=== PATIENT | male | born 1930 | race African-American/Black ===

== ENCOUNTER 2019-12-02 13:57 | Inpatient (IN) | payer MEDICARE, OTHER ==
[~2019-12-02] VITALS: Ht 170.2 cm; Wt 57.2 kg
[2019-12-02 14:24] LABS: BASOPHILS % (AUTO) 0.3 % (0.0-2.0); EOSINOPHILS % (AUTO) 1.6 % (0.0-6.0); HEMATOCRIT 36 % (33-45); HEMOGLOBIN 11.3 g/dL (11.5-14.8); LYMPHOCYTES # (AUTO) 4.4 /CMM (0.8-4.8); LYMPHOCYTES % (AUTO) 30.6 % (20.0-44.0); MEAN CORPUSCULAR HGB CONC 32 g/dl (31.0-36.0); MEAN CORPUSCULAR VOLUME 110 fL (82-100); NEUTROPHILS # (AUTO) 8.7 /CMM (1.8-8.9); NEUTROPHILS % (AUTO) 60.5 % (43.0-81.0); PLATELET COUNT (AUTO) 189 /CMM (150-450); RED BLOOD CELL COUNT(AUTO) 3.28 MIL/uL (4.0-5.2); WHITE BLOOD COUNT (AUTO) 14.3 K/uL (4.3-11.0)
[2019-12-02] MEDS ORDERED: IV NS 0.9% 500 ML BAG IV ONE (14:30)
[2019-12-02 14:33] LABS: CALCIUM, SERUM 9.8 mg/dL (8.5-10.1); CARBON DIOXIDE 26 mmol/L (21-32); CHLORIDE 123 mmol/L (98-107); CREATININE 6.4 mg/dL (0.6-1.3); GLUCOSE 125 mg/dL (74-106); POTASSIUM 5.2 mmol/L (3.5-5.1)
[2019-12-02 14:39] LABS: SODIUM SERUM 161 mmol/L (136-145)
[2019-12-02 14:40] LABS: UREA NITROGEN, BLOOD 134 mg/dL (7-18)
[2019-12-02] MEDS ORDERED: ASCO500T20 GT (14:56)
[2019-12-02] MEDS ORDERED: ATOR80TA GT (14:56)
[2019-12-02] MEDS ORDERED: METO-357 PO (14:56)
[2019-12-02] MEDS ORDERED: AMIN887L GT (14:56)
[2019-12-02] MEDS ORDERED: TYL2T GT (14:56)
[2019-12-02] MEDS ORDERED: MIRT15TA GT (14:56)
[2019-12-02] MEDS ORDERED: LEVO25TA7 GT (14:56)
[2019-12-02] MEDS ORDERED: SENN-18 GT (14:56)
[2019-12-02] MEDS ORDERED: NUTR1PAC14 GT (14:56)
[2019-12-02] MEDS ORDERED: POLY17PO4 GT (14:56)
[2019-12-02] MEDS ORDERED: ACET-868 PO (14:56)
[2019-12-02] MEDS ORDERED: DORZ10DR13 EACHEYE (14:56)
[2019-12-02] MEDS ORDERED: CRAN3875 GT (14:56)
[2019-12-02] MEDS ORDERED: CRAN425C6 PO (14:56)
[2019-12-02] MEDS ORDERED: LISI-605 GT (14:56)
[2019-12-02] MEDS ORDERED: CYAN-51 GT (14:56)
[2019-12-02] MEDS ORDERED: MAGN400O6 GT (14:56)
[2019-12-02] MEDS ORDERED: BISA10SU61 RC (14:56)
[2019-12-02] MEDS ORDERED: APIX5TAB GT (14:56)
--- NOTE | 2019-12-02 15:00 | NUR ---
To ED frm snf for progressive weakness Sent for G-tube placement. on room air, breathing evenly and unlabored. connected to the monitor and pulse ox. kept comfortable, will continue to monitor accordingly.
[2019-12-02] MEDS ORDERED: ONDANSETRON HCL/PF 4 MG/2 ML VIAL IVP PRN (15:30)
[2019-12-02] MEDS ORDERED: Z GUARD REMEDY 2 OZ OINT TP PRN (15:30)
[2019-12-02] MEDS ORDERED: ACETAMINOPHEN 325 MG TABLET PO PRN (15:30)
[2019-12-02] MEDS ORDERED: MAGNESIUM HYDROXIDE 30 ML UDC PO PRN (15:30)
[2019-12-02] MEDS ORDERED: MAG HYDROX/AL HYDROX/SIMETH 30 ML UDC PO PRN (15:30)
[2019-12-02] MEDS ORDERED: BISACODYL SUPP (10 MG) 10 MG/SUPP.RECT SUPP.RECT RC PRN (16:00)
[2019-12-02] MEDS ORDERED: POLYETHYLENE GLYCOL 3350 17 GM POWD.PACK PO PRN (16:00)
[2019-12-02] MEDS ORDERED: SODIUM POLYSTYRENE SULFONATE 15 G/60 ML BOTTLE PO ONE (16:00)
--- NOTE | 2019-12-02 16:00 | NUR ---
ADMISSION NOTE PT BROUGHT UP FROM THE ER AT THIS TIME IN MEDICALLY STABLE CONDITION, VS WNL, A/O X0 BREATHING EVEN AND UNLABORED PLACED ON 2L, BEDREST, NOTED TO HAVE SACRAL SCAR AND TINY HOLE ON HIS BACK, IV IS PATENT AND INTACT. COUGHLIN IN PLACE AND NOTED TO HAVE CHEYANNE COLORED URINE, NOTED TO BE DNR/DNI WITH POLST IN CHART. SAFETY PRECAUTIONS IN PLACE, CALL LIGHT IN REACH, WILL MONITOR ACCORDINGLY
--- NOTE | 2019-12-02 16:57 | NUR ---
wheeled patient via gurney accompanied by RN and EMT in no distress. RN at bedside to assume care.
[2019-12-02] MEDS ORDERED: Medication Not On Formulary EA (Cranberry Extract (Cranberry) 425 MG) PO SCH (17:00)
[2019-12-02] MEDS ORDERED: ARGININE/GLUTAMINE/CALCIUM BMB 1 EACH POWD.PACK PO SCH (17:00)
[2019-12-02] MEDS: CYANOCOBALAMIN 500 MCG TABLET PO SCH (17:00)
[2019-12-02] MEDS: IV 1/2NS 1000 ML 1,000 ML IV SCH (17:14)
[2019-12-02] MEDS: DORZOLAMIDE OPTH 2% 10 ML BOTTLE EACHEYE SCH (17:26)
[2019-12-02] MEDS: TIMOLOL 0.5% SOLN OPHTH 5 ML BOTTLE EACHEYE SCH (17:27)
[2019-12-02] MEDS ORDERED: INSULIN REGULAR, HUMAN 100 UNIT/ML 3 ML VIAL IV ONE (18:00)
[2019-12-02] MEDS ORDERED: DEXTROSE 50%-WATER 50 ML DISP.SYRIN IVP ONE (18:00)
--- NOTE | 2019-12-02 18:40 | NUR ---
RN NOTE DR JACOBSON INFORMED PT REFUSING TO TAKE PO KAYEXLATE, ORDER GIVEN FOR 10 UNIT OF REGULAR INSULIN ALONG WITH AMP OF D50 IV. ORDER IMPLEMENTED AND CARRIED OUT AT THIS TIME. NEW IV ESTABLISHED ON RIGHT HAND GAUGE 22. Addendum: 12/02/19 at 1909 by TOMY BARON RN INSULIN SITE DOCUMENTED NON ADMIN IN EMAR DUE TO MEDICINE BEING GIVEN IVP
--- NOTE | 2019-12-02 19:28 | NUR ---
RN CLOSING NOTE PT IN BED AT LOWEST AND LOCKED POSITION WITH SIDE RAILS UP X2, A/O X0 CONFUSED MUMBLES WORDS, BREATHING EVEN AND UNLABORED WITH NO S/S OF ANY DISTRESS OR PAIN, IV IS PATENT AND INTACT, SAFETY PRECAUTIONS IN PLACE, CALL LIGHT IN REACH, WILL ENDORSE TO NIGHT RN FOR CHERELLE.
[2019-12-02 19:48] LABS: CALCIUM, SERUM 9.6 mg/dL (8.5-10.1); CARBON DIOXIDE 22 mmol/L (21-32); CHLORIDE 124 mmol/L (98-107); GLUCOSE 110 mg/dL (74-106); POTASSIUM 4.6 mmol/L (3.5-5.1)
[2019-12-02 19:49] LABS: SODIUM SERUM 161 mmol/L (136-145); UREA NITROGEN, BLOOD 137 mg/dL (7-18)
[2019-12-02 20:00] VITALS: BP 88/41
--- NOTE | 2019-12-02 20:00 | NUR ---
MS STANLEY NOTES RECEIVED PATIENT AWAKE IN BED WITH NO DISTRESS NOTED. CALL LIGHT WITHIN REACH. PERIPHERAL LINE INTACT AND PATENT. NO FACIAL GRIMACING OR GROANING TO INDICATE PAIN OR DISCOMFORT. ALL BELONGINGS KEPT NEAR BEDSIDE. BED IN LOW LOCK SETTING. WILL CONTINUE TO MONITOR. Addendum: 12/02/19 at 2050 by ELVA LOPEZ RN BED ALARM ON AND FUNCTIONING PROPERLY.
[2019-12-02] MEDS: SENNOSIDES 8.6 MG TABLET PO SCH (21:58)
[2019-12-03] MEDS: HYDROCODONE/APAP 5/325MG 1 EACH TABLET PO PRN ×2 (00:35→10:47)
[2019-12-03] MEDS: IV 1/2NS 1000 ML 1,000 ML IV SCH ×4 (01:30→18:54)
--- NOTE | 2019-12-03 06:25 | NUR ---
MS RN NOTES PATIENT ASLEEP IN BED WITH NO DISTRESS NOTED. CALL LIGHT WITHIN REACH. PERIPHERAL LINE INTACT AND PATENT. FC INTACT AND PATENT AND DRAINED 400ML CLEAR CHEYANNE URINE. NO FACIAL GRIMACING OR GROANING TO INDICATE PAIN OR DISCOMFORT. ALL BELONGINGS KEPT NEAR BEDSIDE. BED IN LOW LOCK SETTING WITH BED ALARM ON AND FUNCTIONING PROPERLY. WILL ENDORSE TO ONCOMING SHIFT.
[2019-12-03 06:50] LABS: BASOPHILS % (AUTO) 0.3 % (0.0-2.0); EOSINOPHILS % (AUTO) 1.7 % (0.0-6.0); HEMATOCRIT 33 % (39-51); HEMOGLOBIN 10.4 g/dL (13.5-17.5); LYMPHOCYTES # (AUTO) 2.7 /CMM (0.8-4.8); LYMPHOCYTES % (AUTO) 20.8 % (20.0-44.0); MEAN CORPUSCULAR HGB CONC 32 g/dl (31.0-36.0); MEAN CORPUSCULAR VOLUME 108 fL (80-96); MONOCYTES % (AUTO) 7.4 % (2.0-12.0); NEUTROPHILS % (AUTO) 69.8 % (43.0-81.0); PLATELET COUNT (AUTO) 166 /CMM (150-450); RED BLOOD CELL COUNT(AUTO) 3.06 MIL/uL (4.5-6.0); WHITE BLOOD COUNT (AUTO) 12.9 K/uL (4.3-11.0)
[2019-12-03 07:11] LABS: ALANINE AMINOTRANSFERASE 86 U/L (12-78); ALBUMIN 3.3 g/dL (3.4-5.0); ALKALINE PHOSPHATASE 232 U/L (46-116); ASPARTATE AMINOTRANSFERASE 41 U/L (15-37); BILIRUBIN,TOTAL 1.9 mg/dL (0.2-1.0); CALCIUM, SERUM 9.3 mg/dL (8.5-10.1); CARBON DIOXIDE 25 mmol/L (21-32); CHLORIDE 124 mmol/L (98-107); CREATININE 5.3 mg/dL (0.6-1.3); GLUCOSE 108 mg/dL (74-106); MAGNESIUM 3.2 mg/dL (1.8-2.4); PHOSPHORUS 4.2 mg/dL (2.5-4.9); POTASSIUM 4.7 mmol/L (3.5-5.1); TOTAL PROTEIN, SERUM 8.1 g/dL (6.4-8.2)
[2019-12-03 07:20] LABS: CREATINE KINASE, TOTAL 277 U/L (39-308)
[2019-12-03 07:30] VITALS: BP 111/67
[2019-12-03 08:00] VITALS: BP 111/67
--- NOTE | 2019-12-03 08:00 | NUR ---
RN NOTES RECEIVED PATIENT IN THE BED OPEN EYES WHEN CALLED NAME OT TOUCHED, CONFUSED REDIRECTABLE. , NO ACUTE RESPIRATORY DISTRESS, ON O2-2LNC. INFUSING 1/2 NS AT 100 ML/HR INTACT ON RIGHT HAND INTACT, COUGHLIN CATHETER DARNING LIGHT YELLOW OUTPUT. ASSIST EATING BY BUS ANALYST , PATIENT TOLERATED BREAKFAST 75 %, KEEP HOB ELEVATED FOR ASPIRATION PRECAUTION, ASSIST TURN AND REPOSTION Q 2 HR, CALL LIGHT WITHIN TO REACH. CONTINUED MONITORING. SEEN PATIENT BY Dr JACOBSON CONTINUE HYDRATION, AND HOSPITALIZATION.
[2019-12-03 08:01] LABS: SODIUM SERUM 161 mmol/L (136-145); UREA NITROGEN, BLOOD 132 mg/dL (7-18)
[2019-12-03] MEDS ORDERED: MIRTAZAPINE 15 MG TABLET PO SCH (09:00)
[2019-12-03] MEDS ORDERED: Medication Not On Formulary EA (Cran/Vitc/Mannose/Inulin/Brom (Uti-Stat Liquid) 30 MG) PO SCH (09:00)
[2019-12-03] MEDS: CYANOCOBALAMIN 500 MCG TABLET PO SCH ×2 (10:45→17:00)
[2019-12-03] MEDS: ASCORBIC ACID 500 MG TABLET PO SCH (10:46)
[2019-12-03] MEDS: LEVOTHYROXINE SODIUM 75 MCG TABLET PO SCH (10:46)
[2019-12-03] MEDS: ATORVASTATIN 40 MG TABLET PO SCH (10:46)
[2019-12-03] MEDS: PROSOURCE / PROSTAT (PYXIS) 30 ML UDC PO SCH (10:47)
--- NOTE | 2019-12-03 10:47 | NUR ---
RN NOTES ADMINISTERED NARCO 5/325 FOR GENERALIZED PAIN 6/10 PER PAIN SCALE. V/S TAKEN BP 111/67, P-100, ALSO ADMINISTERED SCHEDULED MEDICATION BY CRUSHED AND MIXED WITH APPLE SAUCE. SON NEXT TO THE BED. CALL LIGHT WITHIN TO REACH, SAFETY PRECAUTION MAINTAINED ALL THE TIME.
[2019-12-03] MEDS: MAGNESIUM HYDROXIDE 30 ML UDC PO SCH (10:49)
[2019-12-03] MEDS: TIMOLOL 0.5% SOLN OPHTH 5 ML BOTTLE EACHEYE SCH ×2 (10:52→17:00)
[2019-12-03] MEDS: DORZOLAMIDE OPTH 2% 10 ML BOTTLE EACHEYE SCH ×2 (10:52→17:00)
[2019-12-03 11:11] LABS: APPEARANCE,URINE SL CLOUDY (CLEAR); BILIRUBIN,URINE NEGATIVE (NEGATIVE); BLOOD, URINE LARGE Ery/uL (NEGATIVE); COLOR,URINE YELLOW (YELLOW); KETONES,URINE NEGATIVE (NEGATIVE); LEUKOCYTE ESTERASE ,URINE SMALL (NEGATIVE); NITRITE, URINE POSITIVE (NEGATIVE); PH,URINE 5.5 (5.0-8.0); PROTEIN,URINE 30 mg/dl (NEGATIVE); UGLUCOSE NEGATIVE (NEGATIVE); UROBILINOGEN,URINE 0.2 EU/dL (0.2)
[2019-12-03 11:23] LABS: CREATININE, URINE 227.4 MG/DL (30.0-125.0); URINE TOTAL PROTEIN 124.1 mg/dL (0-11.9)
--- NOTE | 2019-12-03 11:30 | NUR ---
rn notes Transferred patient to the [address] [place] [address]/[facility] room 326 bed 1. patient stable medication were administered for pain effective, v/s wnl, infusing 1/2 NS at125 ml/hr intact, belonging with the patient.Report given Manisha Olmstead RN follow plan of care.
--- NOTE | 2019-12-03 11:40 | NUR ---
RECEIVED TRANSFER FROM [facility] VIA BED.REPORT RECEIVED FROM JADEN DEJESUS.NO SOB ON ROOM AIR.APHASIC PT TRIED TO PULL OUT HIS COUGHLIN CATHETER AND IV LINE.ON BEDREST.NOTIFIED DR JACOBSON AND OBTAINED CONSENT FOR RUY SOFT WRIST RESTRAINTS AND CARRIED OUT.PT'S SON AT THE BEDSIDE AND MADE AWARE.NO S/S OF PAIN OR DISTRESS.WILL MONITOR.
[2019-12-03 11:56] VITALS: BP 115/82
[2019-12-03 12:09] LABS: BACTERIA,URINE Few /HPF (None Seen); EOSINOPHIL,URINE None Seen; SQUAMOUS EPITHELIAL CELL,UR Few /HPF (None Seen)
--- NOTE | 2019-12-03 18:20 | NUR ---
WITH ONGOING IVF OF 1/2 NS AT 125 ML/HR INFUSING WELL.
--- NOTE | 2019-12-03 18:30 | NUR ---
TURNED EVERY TWO HRS.RELEASING RUY WRIST RESTRAINTS OCCASIONALLY WHEN ASLEEP TO CHECK HIS CIRCULATION.
[2019-12-03 18:33] VITALS: BP 111/80
--- NOTE | 2019-12-03 19:00 | NUR ---
PT REFUSED MEALS CLOSING HIS MOUTH TIGHTLY INSPITE OF GENTLE APPROACH.PT REFUSED MEDS AND EYEDROPS INSPITE OF EXPLAINING ITS RISKS AND BENEFITS.
--- NOTE | 2019-12-03 19:56 | NUR ---
RECIEVED IN BED ALERT TO NURSE AT THE BEDSIDE, WITH CONFUSION. PULLING AT THE LINEN ASKING ME TO TAKE OFF THE RESTRAINTS, REMOVED THE RIGHT WRIST RESTAINT TO CHECK IV SITE AND WENT TO GRAB HIS COUGHLIN CATHETER. REPLACED THE RESTRAINT COVERED HIM WITH A WARM BLANKET FOR COMFORT IN AN ATTEMPT TO RELAX HIM AND TURNED ON TV, WILL MONITOR HIM THRU THE NIGHT
[2019-12-03 20:00] VITALS: BP 112/71
[2019-12-03 20:14] VITALS: BP 112/71
[2019-12-03] MEDS: SENNOSIDES 8.6 MG TABLET PO SCH (21:34)
[2019-12-03] MEDS: MIRTAZAPINE 15 MG TABLET PO SCH (21:35)
[2019-12-04] MEDS: IV 1/2NS 1000 ML 1,000 ML IV SCH ×3 (02:13→16:59)
--- NOTE | 2019-12-04 05:14 | NUR ---
ENDING NOTES: took carton of juice 30 ml at a time and slwoly. Took his ordered po meds crushed small spoonful pudding, finishiing the complete container of vanilla pidding. 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 urine yellow and clear. foey output 400 clear yellow
[2019-12-04 08:00] VITALS: BP 110/64
[2019-12-04 09:07] LABS: PTH, INTACT 67 pg/mL (15-65)
[2019-12-04] MEDS: ATORVASTATIN 40 MG TABLET PO SCH (09:17)
[2019-12-04] MEDS: MAGNESIUM HYDROXIDE 30 ML UDC PO SCH (09:17)
[2019-12-04] MEDS: CYANOCOBALAMIN 500 MCG TABLET PO SCH ×2 (09:17→16:58)
[2019-12-04] MEDS: ASCORBIC ACID 500 MG TABLET PO SCH (09:17)
[2019-12-04] MEDS: LEVOTHYROXINE SODIUM 75 MCG TABLET PO SCH (09:17)
[2019-12-04] MEDS: PROSOURCE / PROSTAT (PYXIS) 30 ML UDC PO SCH (09:20)
[2019-12-04] MEDS: DORZOLAMIDE OPTH 2% 10 ML BOTTLE EACHEYE SCH ×2 (09:20→17:01)
[2019-12-04] MEDS: TIMOLOL 0.5% SOLN OPHTH 5 ML BOTTLE EACHEYE SCH ×2 (09:20→17:00)
--- NOTE | 2019-12-04 10:55 | NUR ---
WOUND CARE CONSULT: PT PRESENTS WITH SCARRING TO SACRAL AREA AND DEEP SCAR TO MIDBACK, NO DRAINAGE. RECOMMEND SURGICAL CONSULT. RECOMMENDATIONS MADE FOR SKIN PROTECTION. DISCUSSED WITH NURSING STAFF. DR JAGDEEP SMITH NOTIFIED OF CONSULT REQUEST. WILL SEE PRN. [place] IN AGREEMENT WITH PLAN OF CARE. Addendum: 12/04/19 at 1101 by SUYAPA ERNANDEZ WNDNU Amended: Links added.
[2019-12-04 13:39] LABS: BASOPHILS # (AUTO) 0.1 /CMM (0.0-0.2); BASOPHILS % (AUTO) 0.6 % (0.0-2.0); EOSINOPHILS % (AUTO) 5.6 % (0.0-6.0); HEMATOCRIT 27 % (39-51); HEMOGLOBIN 8.4 g/dL (13.5-17.5); LYMPHOCYTES # (AUTO) 2.2 /CMM (0.8-4.8); LYMPHOCYTES % (AUTO) 20.4 % (20.0-44.0); MEAN CORPUSCULAR HGB CONC 31 g/dl (31.0-36.0); MEAN CORPUSCULAR VOLUME 111 fL (80-96); MONOCYTES # (AUTO) 0.7 /CMM (0.1-1.30); MONOCYTES % (AUTO) 6.3 % (2.0-12.0); NEUTROPHILS # (AUTO) 7.2 /CMM (1.8-8.9); NEUTROPHILS % (AUTO) 67.1 % (43.0-81.0); PLATELET COUNT (AUTO) 125 /CMM (150-450); RED BLOOD CELL COUNT(AUTO) 2.44 MIL/uL (4.5-6.0); WHITE BLOOD COUNT (AUTO) 10.7 K/uL (4.3-11.0)
[2019-12-04 14:55] LABS: BASOPHILS # (AUTO) 0.1 /CMM (0.0-0.2); BASOPHILS % (AUTO) 0.6 % (0.0-2.0); EOSINOPHILS % (AUTO) 5.5 % (0.0-6.0); HEMATOCRIT 30 % (39-51); HEMOGLOBIN 9.6 g/dL (13.5-17.5); LYMPHOCYTES # (AUTO) 2.3 /CMM (0.8-4.8); LYMPHOCYTES % (AUTO) 19.1 % (20.0-44.0); MEAN CORPUSCULAR HGB CONC 32 g/dl (31.0-36.0); MEAN CORPUSCULAR VOLUME 109 fL (80-96); MONOCYTES # (AUTO) 0.8 /CMM (0.1-1.30); NEUTROPHILS # (AUTO) 8.2 /CMM (1.8-8.9); NEUTROPHILS % (AUTO) 67.8 % (43.0-81.0); PLATELET COUNT (AUTO) 139 /CMM (150-450); RED BLOOD CELL COUNT(AUTO) 2.77 MIL/uL (4.5-6.0); WHITE BLOOD COUNT (AUTO) 12.1 K/uL (4.3-11.0)
[2019-12-04 15:09] LABS: ALANINE AMINOTRANSFERASE 243 U/L (12-78); ALBUMIN 2.8 g/dL (3.4-5.0); ALKALINE PHOSPHATASE 332 U/L (46-116); ASPARTATE AMINOTRANSFERASE 275 U/L (15-37); BILIRUBIN,TOTAL 4.2 mg/dL (0.2-1.0); CALCIUM, SERUM 8.5 mg/dL (8.5-10.1); CARBON DIOXIDE 22 mmol/L (21-32); CHLORIDE 122 mmol/L (98-107); CREATININE 3.3 mg/dL (0.6-1.3); GLUCOSE 94 mg/dL (74-106); MAGNESIUM 2.7 mg/dL (1.8-2.4); POTASSIUM 4.2 mmol/L (3.5-5.1); TOTAL PROTEIN, SERUM 7.4 g/dL (6.4-8.2)
[2019-12-04 15:11] LABS: UREA NITROGEN, BLOOD 92 mg/dL (7-18)
[2019-12-04 15:12] LABS: SODIUM SERUM 157 mmol/L (136-145)
[2019-12-04 16:00] VITALS: BP 135/65
--- NOTE | 2019-12-04 19:48 | NUR ---
MS RN OPENING NOTES PATIENT RECEIVED RESTING IN BED COMFORTABLY; A/O X1; PATIENT ON 2L NC, TOLERATING WELL; NO S/S OF ACUTE RESPIRATORY DISTRESS NOTED; BREATHING EVEN AND UNLABORED; BILATERAL SOFT WRIST RESTRAINTS IN PLACE, NO S/S OF SKIN BREAKDOWN UNDER RESTRAINTS; COUGHLIN INTACT AND FLOWING YELLOW OUTPUT NOTED; R HANG #22 RUNNING D5 1/2 NS @ 75ML/HR; FLUSHING WELL, NO S/S OF REDNESS OR INFILTRATION; SAFETY PRECAUTIONS IN PLACE, BED LOCKED IN LOW POSITION; BILATERAL UPPER SIDE RAILS UP; CALL LIGHT WITHIN REACH; WILL CONTINUE TO MONITOR.
[2019-12-04 20:00] VITALS: BP 134/84
--- NOTE | 2019-12-04 22:00 | NUR ---
MS STANLEY NOTES TIMOLOL EYE DROPS NON-ADMIN; UNAVAILABLE. Addendum: 12/05/19 at 0039 by JIE MARTÍNEZ RN ENTRY ERROR
[2019-12-04] MEDS: SENNOSIDES 8.6 MG TABLET PO SCH (22:27)
[2019-12-04] MEDS: MIRTAZAPINE 15 MG TABLET PO SCH (22:27)
[2019-12-05] MEDS: IV 1/2NS 1000 ML 1,000 ML IV SCH ×2 (01:44→10:10)
[2019-12-05 05:07] LABS: *SPE A/G RATIO 0.8 (0.7-1.7); *SPE ALBUMIN 3.3 g/dL (2.9-4.4); *SPE ALPHA-1-GLOBULIN 0.3 g/dL (0.0-0.4); *SPE ALPHA-2-GLOBULIN 0.8 g/dL (0.4-1.0); *SPE GLOBULIN, TOTAL 4.1 g/dL (2.2-3.9); *SPE M-SPIKE Not Observed g/dL (Not Observed)
--- NOTE | 2019-12-05 06:17 | NUR ---
MS RN CLOSING NOTES PATIENT SLEEPING IN BED COMFORTABLY; BREATHING EVEN AND UNLABORED; NO S/S OF ACUTE RESPIRATORY DISTRESS NOTED; PATIENT ON 2L NC; TOLERATING WELL; BILATERAL SOFT WRIST RESTRAINTS IN PLACE, NO EVIDENCE OF SKIN BREAKDOWN IN BILATERAL WRIST AREA NOTED; R HAND #22 RUNNING 1/2 NS @ 125ML/HR; FLUSHING WELL, NO S/S OF REDNESS OR INFILTRATION NOTED; COUGHLIN CATH INTACT, FOLLOWING DARK YELLOW UO; SAFETY PRECAUTIONS IN PLACE, BILATERAL UPPER SIDE RAILS X2; CALL LIGHT WITHIN REACH; WILL ENDORSE CONTINUITY OF CARE TO ONCOMING NURSE.
--- NOTE | 2019-12-05 07:54 | NUR ---
MS RN NOTES PATIENT RECEIVED RESTING INSIDE ROOM. SLEEPING, AROUSABLE THROUGH VERBAL AND TACTILE STIMULI. NO ACUTE DISTRESS. BILATERAL SOFT WRIST RESTRAINTS IN PLACE, SKIN CHECKS DONE. COUGHLIN CATH IN PLACE WITH YELLOW URINE OUTPUT NOTED AT THIS TIME. SAFETY PRECAUTIONS IN PLACE. WILL CONTINUE TO MONITOR. BED LOCKED AND IN LOW POSITION. BILATERAL UPPER SIDE RAILS UP AND LOCKED. CALL LIGHT WITHIN EASY REACH
[2019-12-05 07:59] LABS: BASOPHILS % (AUTO) 0.3 % (0.0-2.0); EOSINOPHILS % (AUTO) 6.8 % (0.0-6.0); HEMATOCRIT 26 % (39-51); HEMOGLOBIN 8.6 g/dL (13.5-17.5); LYMPHOCYTES # (AUTO) 2.4 /CMM (0.8-4.8); LYMPHOCYTES % (AUTO) 19.5 % (20.0-44.0); MEAN CORPUSCULAR HGB CONC 33 g/dl (31.0-36.0); MEAN CORPUSCULAR VOLUME 108 fL (80-96); MONOCYTES # (AUTO) 0.7 /CMM (0.1-1.30); MONOCYTES % (AUTO) 5.6 % (2.0-12.0); NEUTROPHILS # (AUTO) 8.3 /CMM (1.8-8.9); NEUTROPHILS % (AUTO) 67.8 % (43.0-81.0); PLATELET COUNT (AUTO) 130 /CMM (150-450); RED BLOOD CELL COUNT(AUTO) 2.45 MIL/uL (4.5-6.0); WHITE BLOOD COUNT (AUTO) 12.2 K/uL (4.3-11.0)
[2019-12-05 08:00] VITALS: BP 94/55
[2019-12-05 08:14] LABS: CALCIUM, SERUM 8.1 mg/dL (8.5-10.1); CARBON DIOXIDE 23 mmol/L (21-32); CHLORIDE 123 mmol/L (98-107); CREATININE 2.8 mg/dL (0.6-1.3); GLUCOSE 98 mg/dL (74-106); MAGNESIUM 2.6 mg/dL (1.8-2.4); PHOSPHORUS 2.3 mg/dL (2.5-4.9); POTASSIUM 4.2 mmol/L (3.5-5.1); SODIUM SERUM 154 mmol/L (136-145); UREA NITROGEN, BLOOD 72 mg/dL (7-18)
[2019-12-05] MEDS: ATORVASTATIN 40 MG TABLET PO SCH (09:47)
[2019-12-05] MEDS: CYANOCOBALAMIN 500 MCG TABLET PO SCH ×2 (09:47→17:00)
[2019-12-05] MEDS: LEVOTHYROXINE SODIUM 75 MCG TABLET PO SCH (09:48)
[2019-12-05] MEDS: ASCORBIC ACID 500 MG TABLET PO SCH (09:48)
[2019-12-05] MEDS: MAGNESIUM HYDROXIDE 30 ML UDC PO SCH (09:49)
[2019-12-05] MEDS: TIMOLOL 0.5% SOLN OPHTH 5 ML BOTTLE EACHEYE SCH ×2 (09:50→17:29)
[2019-12-05] MEDS: DORZOLAMIDE OPTH 2% 10 ML BOTTLE EACHEYE SCH ×2 (09:51→17:29)
[2019-12-05] MEDS: PROSOURCE / PROSTAT (PYXIS) 30 ML UDC PO SCH (09:51)
[2019-12-05 16:00] VITALS: BP 118/66
--- NOTE | 2019-12-05 17:00 | NUR ---
MS RN NOTES PATIENT SEEN AND EXAMINED BY DR AWAD, WITH ORDER FOR US ABDOMEN. ORDER NOTED AND CARRIED OUT, PATIENT PLACED ON NPO STATUS, US TECH MADE AWARE. PER DR AWAD, OK TO RESUME PREVIOUS DIET ONCE US ABD IS DONE. ORDER NOTED AND CARRIED OUT. WILL CONTINUE TO MONITOR
[2019-12-05] MEDS: IV D5W 1,000 ML IV PRN (18:03)
--- NOTE | 2019-12-05 19:05 | NUR ---
MS RN NOTES PATIETN RESTING INSIDE ROOM. NO ACUTE DISTRESS. BILATERAL SOFT WRIST RESTRAINTS IN PLACE, SKIN CHECKS DONE. MAINTAINED SAFETY PRECAUTIONS. WILL ENDORSE TO INCOMING SHIFT FOR CHERELLE. BED LOCKED AND IN LOW POSITION. BILATERAL UPPER SIDE RAILS UP AND LOCKED. CALL LIGHT WITHIN EASY REACH
--- NOTE | 2019-12-05 19:48 | NUR ---
MS RN OPENING NOTES PATIENT RECEIVED SLEEPING IN BED COMFORTABLY; BREATHING EVEN AND UNLABORED; NO S/S OF ACUTE RESPIRATORY DISTRESS NOTED; PATIENT ON 3L NC, TOLERATING WELL; PATIENT A/O X1, BILATERAL SOFT WRIST RESTRAINTS IN PLACE; NO EVIDENCE OF SKIN BREAKDOWN ON WRISTS; COUGHLIN INTACT, FLOWING YELLOW URINE; SAFETY PRECAUTIONS IN PLACE; BED LOCKED IN LOW POSITION; SAFETY PRECAUTION IN PLACE; CALL LIGHT WITHIN REACH; WILL CONTINUE TO MONITOR
[2019-12-05 20:00] VITALS: BP 128/70
[2019-12-05] MEDS: SENNOSIDES 8.6 MG TABLET PO SCH (21:39)
[2019-12-05] MEDS: MIRTAZAPINE 15 MG TABLET PO SCH (21:40)
--- NOTE | 2019-12-06 01:00 | NUR ---
MS RN NOTES REPORT GIVEN TO JADEN SOSA. WILL ENDORSE CONTINUITY OF CARE.
--- NOTE | 2019-12-06 01:05 | NUR ---
IRON AND STEEL WORK SUPERVISOR OF CARE RE[facility] PATIENT SLEEPING IN BED COMFORTABLY, EASILY AWAKENED. PATIENT ON 3LPM O2 VIA NC, TOLERATING WELL. NO SIGNS OF RESPIRATORY DISTRESS, NO SHORTNESS OF BREATH NOTED. IV SITE TO R HAND #[address] IVF RUNNING. NOTED WITH BILATERAL SOFT WRIST RESTRAINTS IN PLACE, SKIN INTACT. COUGHLIN NOTED; INTACT, YELLOW OUTPUT NOTED. SAFETY PRECAUTIONS IMPLEMENTED; CALL LIGHT WITHIN REACH, BED LOW, BED LOCKED, BILATERAL UPPER SIDE RAILS UP. WILL CONTINUE TO MONITOR.
[2019-12-06] MEDS: IV D5W 1,000 ML IV PRN ×2 (05:00→15:37)
--- NOTE | 2019-12-06 06:28 | NUR ---
RN CLOSING NOTES PATIENT IS CURRENTLY ASLEEP, EASILY AWAKENED. ON 3LPM O2 VIA NC, TOLERATING WELL. NO SIGNS OF RESPIRATORY DISTRESS, NO SHORTNESS OF BREATH NOTED, RESPIRATIONS EVEN AND UNLABORED. NO SIGNS OF FACIAL GRIMACING INDICATING PAIN OR DISCOMFORT AT THIS TIME.IV SITE TO R HAND #[address], INTACT AND PATENT, NO SIGNS OF INFECTION/INFILTRATION, FLUSHED, IVF RUNNING. BILATERAL SOFT WRIST RESTRAINTS IN PLACE, SKIN REMAINS INTACT, GOOD CIRCULATION. COUGHLIN CATHETER INTACT, WITH YELLOW URINE OUTPUT. PATIENT KEPT CLEAN, DRY AND COMFORTABLE. ALL NEEDS MET ON SHIFT. SAFETY PRECAUTIONS IMPLEMENTED; CALL LIGHT WITHIN REACH, BED LOW, BED LOCKED, BILATERAL UPPER SIDE RAILS UP. WILL ENDORSE TO DAY SHIFT NURSE FOR CONTINUITY OF CARE.
[2019-12-06 08:00] VITALS: BP 113/79
--- NOTE | 2019-12-06 08:09 | NUR ---
MS RN NOTES PATIENT RECEIVED SLEEPING, EASILY AROUSED WITH TOUCH. PATIENT ON NASAL CANULA 3 LITERS. SKIN WARM AND DRY. BILATERAL SOFT-WRIST RESTRAINTS IN PLACE, WITH TWO FINGER SPACE, AND SKIN CHECK DONE. IV RUNNING AND INTACT ON RIGHT HAND, 22 GAUGE. UNLABORED BREATHING WITH NO DISTRESS PRESENT. AT RISK FOR ASPIRATION, PRECAUTION TAKEN PLACE WITH PUREED DIET. COUGHLIN IN PLACE WITH YELLOW COLOR URINE. AT RISK FOR FALL, FALL RISK PRECAUTION IN PLACE WITH BED IN THE LOWEST POSITION, SIDE RAILS UP, BED LOCKED, AND CALL LIGHT WITH IN REACH. WILL CONTINUE TO MONITOR PATIENT.
[2019-12-06 08:19] LABS: BASOPHILS % (AUTO) 0.3 % (0.0-2.0); EOSINOPHILS % (AUTO) 11.2 % (0.0-6.0); HEMATOCRIT 25 % (39-51); LYMPHOCYTES # (AUTO) 1.4 /CMM (0.8-4.8); LYMPHOCYTES % (AUTO) 12.4 % (20.0-44.0); MEAN CORPUSCULAR HGB CONC 33 g/dl (31.0-36.0); MEAN CORPUSCULAR VOLUME 107 fL (80-96); MONOCYTES # (AUTO) 0.4 /CMM (0.1-1.30); MONOCYTES % (AUTO) 3.7 % (2.0-12.0); NEUTROPHILS % (AUTO) 72.4 % (43.0-81.0); PLATELET COUNT (AUTO) 146 /CMM (150-450); RED BLOOD CELL COUNT(AUTO) 2.32 MIL/uL (4.5-6.0)
[2019-12-06] MEDS: ASCORBIC ACID 500 MG TABLET PO SCH (08:43)
[2019-12-06] MEDS: LEVOTHYROXINE SODIUM 75 MCG TABLET PO SCH (08:43)
[2019-12-06] MEDS: CYANOCOBALAMIN 500 MCG TABLET PO SCH ×2 (08:43→16:34)
[2019-12-06] MEDS: ATORVASTATIN 40 MG TABLET PO SCH (08:43)
[2019-12-06] MEDS: PROSOURCE / PROSTAT (PYXIS) 30 ML UDC PO SCH (08:44)
[2019-12-06] MEDS: TIMOLOL 0.5% SOLN OPHTH 5 ML BOTTLE EACHEYE SCH ×2 (08:44→16:41)
[2019-12-06] MEDS: DORZOLAMIDE OPTH 2% 10 ML BOTTLE EACHEYE SCH ×2 (08:44→16:41)
[2019-12-06] MEDS: MAGNESIUM HYDROXIDE 30 ML UDC PO SCH (08:48)
[2019-12-06 08:49] LABS: ALANINE AMINOTRANSFERASE 306 U/L (12-78); ALBUMIN 2.2 g/dL (3.4-5.0); ALKALINE PHOSPHATASE 540 U/L (46-116); ASPARTATE AMINOTRANSFERASE 338 U/L (15-37); BILIRUBIN,TOTAL 6.6 mg/dL (0.2-1.0); CALCIUM, SERUM 8.1 mg/dL (8.5-10.1); CARBON DIOXIDE 24 mmol/L (21-32); CHLORIDE 119 mmol/L (98-107); CREATININE 2.6 mg/dL (0.6-1.3); GLUCOSE 151 mg/dL (74-106); MAGNESIUM 2.7 mg/dL (1.8-2.4); PHOSPHORUS 1.9 mg/dL (2.5-4.9); POTASSIUM 4.3 mmol/L (3.5-5.1); SODIUM SERUM 154 mmol/L (136-145); TOTAL PROTEIN, SERUM 6.7 g/dL (6.4-8.2); UREA NITROGEN, BLOOD 57 mg/dL (7-18)
[2019-12-06] MEDS ORDERED: NEUTRA PHOS 1 POWD.PACKET PO ONE (11:30)
[2019-12-06] MEDS: CEFTRIAXONE 1 G in IV D5W 50 ML IV SCH (15:37)
[2019-12-06 16:00] VITALS: BP 92/67
--- NOTE | 2019-12-06 18:21 | NUR ---
MS RN NOTES PATIENT WAS COOPERATIVE THROUGHOUT SHIFT. PATIENT IS SLEEPING, AND AROUSED WITH TOUCH AND BY NAME. PATIENT ON NASAL CANNULA, 3 LITERS, NO RESPIRATORY DISTRESS PRESENT. BILATERAL SOFT-WRIST RESTRAINTS IN PLACE WITH SKIN CHECK DONE. SKIN WARM AND DRY, IV INTACT AND RUNNING ON RIGHT HAND. PATIENT KEPT CLEAN AND LINENS CHANGED. PATIENT'S COUGHLIN STILL IN PLACE WITH YELLOW, CLEAR URINE. WILL ENDORSE TO INCOMING SHIFT FOR CHERELLE. BED LOCKED, BED IN THE LOWEST POSITION WITH SIDE RAILS UP, AND CALL LIGHT WITH EASY REACH.
--- NOTE | 2019-12-06 19:30 | NUR ---
MS RN OPENING NOTE RECEIVED PATIENT IN BED. A/OX1. ON OXYGEN 3L/MIN VIA NASAL CANNULA. RESPIRATIONS ARE EVEN AND UNLABORED. NO S/S SOB NOTED. NO S/S OF MANIFESTATIONS OF PAIN AT THIS TIME. IN NO APPARENT DISTRESS. IV ACCESS IN RIGHT HAND #22 RUNNING D5W@100/HR. COUGHLIN CATHETER IS PRESENT, DRAINING TO GRAVITY, URINE IS YELLOW. BILATERAL SOFT WRIST RESTRAINTS ARE PRESENT, GOOD BLOOD RETURN, NO REDNESS NOTED. BED IS LOW AND LOCKED, HOB ELEVATE IN SEMI FOWLERS, SIDE RIALS UPX2, BED ALARM ON. CALL LIGHT WITHIN REACH. WILL CONTINUE TO MONITOR.
[2019-12-06 20:00] VITALS: BP 116/54
[2019-12-06] MEDS: SENNOSIDES 8.6 MG TABLET PO SCH (21:09)
[2019-12-06] MEDS: MIRTAZAPINE 15 MG TABLET PO SCH (21:09)
[2019-12-07] MEDS: IV D5W 1,000 ML IV PRN ×2 (02:40→18:48)
--- NOTE | 2019-12-07 07:30 | NUR ---
MS RN OPENING NOTE RECEIVED PATIENT IN BED. A/OX1. ON OXYGEN 3L/MIN VIA NASAL CANNULA. NO SIGNS OF DISTRESS NOTED AT THIS TIME. NOTED WITH B/L SOFT RESTRAINS ON HANDS. NO IV ACCESS, PATIENT IS A HARD STICK AND WILL TRY TO RE-INSERT. COUGHLIN CATHETER IS PRESENT, DRAINING TO GRAVITY, URINE IS YELLOW. SAFETY MEASURES IN PLACE. BED IN LOW AND LOCKED, HOB ELEVATE IN SEMI FOWLERS, SIDE RIALS UPX2, BED ALARM ON. CALL LIGHT WITHIN REACH. WILL CONTINUE TO MONITOR.
[2019-12-07 08:00] VITALS: BP 94/62
--- NOTE | 2019-12-07 08:01 | NUR ---
MS RN CLOSING NOTE PATIENT IN BED. A/OX1. REMAINS ON OXYGEN 3L/MIN VIA NASAL CANNULA. RESPIRATIONS ARE EVEN AND UNLABORED. NO SOB NOTED. NO MANIFESTATIONS OF PAIN THROUGHOUT. NO DISTRESS NOTED. IV ACCESS LEAKING, TRIED TO INSERT NEW IV WITH ONCOMING NURSE. COUGHLIN CATHETER IS MAINTAINED, DRAINING TO GRAVITY, URINE IS CHEYANNE/TEA COLOR, OUTPUT 700ML. BILATERAL SOFT WRIST RESTRAINTS ARE MAINTAINED, GOOD BLOOD CIRCULATION, NO REDNESS NOTED. BED IS LOW AND LOCKED, HOB ELEVATE IN SEMI FOWLERS, SIDE RIALS UPX2, BED ALARM ON. CALL LIGHT WITHIN REACH. WILL ENDORSE TO NEXT SHIFT.
[2019-12-07 08:05] LABS: ALBUMIN 2.1 g/dL (3.4-5.0); TOTAL PROTEIN, SERUM 6.6 g/dL (6.4-8.2)
[2019-12-07] MEDS: ASCORBIC ACID 500 MG TABLET PO SCH (09:08)
[2019-12-07] MEDS: LEVOTHYROXINE SODIUM 75 MCG TABLET PO SCH (09:08)
[2019-12-07] MEDS: CYANOCOBALAMIN 500 MCG TABLET PO SCH ×2 (09:09→16:28)
[2019-12-07] MEDS: MAGNESIUM HYDROXIDE 30 ML UDC PO SCH (09:10)
[2019-12-07] MEDS: DORZOLAMIDE OPTH 2% 10 ML BOTTLE EACHEYE SCH ×2 (09:11→16:27)
[2019-12-07] MEDS: TIMOLOL 0.5% SOLN OPHTH 5 ML BOTTLE EACHEYE SCH ×2 (09:11→16:27)
[2019-12-07] MEDS: PROSOURCE / PROSTAT (PYXIS) 30 ML UDC PO SCH (09:12)
[2019-12-07 09:41] LABS: BASOPHILS % (AUTO) 0.1 % (0.0-2.0); EOSINOPHILS % (AUTO) 3.4 % (0.0-6.0); HEMATOCRIT 25 % (39-51); LYMPHOCYTES % (AUTO) 8.1 % (20.0-44.0); MEAN CORPUSCULAR HGB CONC 32 g/dl (31.0-36.0); MEAN CORPUSCULAR VOLUME 107 fL (80-96); MONOCYTES # (AUTO) 0.6 /CMM (0.1-1.30); MONOCYTES % (AUTO) 4.5 % (2.0-12.0); NEUTROPHILS # (AUTO) 10.8 /CMM (1.8-8.9); NEUTROPHILS % (AUTO) 83.9 % (43.0-81.0); PLATELET COUNT (AUTO) 167 /CMM (150-450); RED BLOOD CELL COUNT(AUTO) 2.32 MIL/uL (4.5-6.0); WHITE BLOOD COUNT (AUTO) 12.8 K/uL (4.3-11.0)
[2019-12-07 09:49] LABS: CALCIUM, SERUM 7.8 mg/dL (8.5-10.1); CARBON DIOXIDE 25 mmol/L (21-32); CHLORIDE 113 mmol/L (98-107); CREATININE 2.8 mg/dL (0.6-1.3); GLUCOSE 116 mg/dL (74-106); MAGNESIUM 2.4 mg/dL (1.8-2.4); PHOSPHORUS 2.3 mg/dL (2.5-4.9); POTASSIUM 3.5 mmol/L (3.5-5.1); SODIUM SERUM 147 mmol/L (136-145); UREA NITROGEN, BLOOD 50 mg/dL (7-18)
[2019-12-07] MEDS ORDERED: NEUTRA PHOS 1 POWD.PACKET PO ONE (12:30)
[2019-12-07] MEDS: CEFTRIAXONE 1 G in IV D5W 50 ML IV SCH (15:01)
[2019-12-07 16:00] VITALS: BP 121/68
--- NOTE | 2019-12-07 18:44 | NUR ---
MS RN CLOSING NOTE PATIENT IN BED. A/OX1. ON OXYGEN 3L/MIN VIA NASAL CANNULA. NO SIGNS OF DISTRESS NOTED THROUGHOUT THE SHIFT. NOTED WITH B/L SOFT RESTRAINS ON HANDS. IV FLUIDS ON RIGHT UPPER ARM MIDLINE WITH D5W @100ML/HR. PATENT AND INTACT. COUGHLIN CATHETER IS PRESENT, DRAINING TO GRAVITY, URINE IS YELLOW. SAFETY MEASURES IN PLACE. BED IN LOW AND LOCKED, HOB ELEVATE IN SEMI FOWLERS, SIDE RIALS UPX2, BED ALARM ON. CALL LIGHT WITHIN REACH. WILL ENDORSE TO [place] MACHINE OPERATOR NURSE FOR CHERELLE.
--- NOTE | 2019-12-07 19:10 | NUR ---
MS RN NOTES RECEIVED PATIENT IN BED AND AWAKE. A/OX1. PT NOTED ON OXYGEN 3L/MIN VIA NASAL CANNULA TOLERATING WELL. NO SIGNS OF DISTRESS NOTED AT THIS TIME. NOTED WITH B/L SOFT RESTRAINS ON HANDS. PT NOTED WITH MATTHIAS MIDLINE INFUSING D5W @100CC/HR. COUGHLIN CATHETER IS PRESENT, DRAINING TO GRAVITY, URINE IS YELLOW. SAFETY MEASURES IN PLACE WITH BED IN LOWEST LOCKED POSITION WITH SIDE RAILS UP X2. CALL LIGHT WITHIN REACH. WILL CONTINUE TO MONITOR.
[2019-12-07 20:00] VITALS: BP 112/82
[2019-12-07] MEDS: MIRTAZAPINE 15 MG TABLET PO SCH (22:31)
[2019-12-07] MEDS: SENNOSIDES 8.6 MG TABLET PO SCH (22:31)
[2019-12-08] MEDS: IV D5W 1,000 ML IV PRN ×3 (05:19→23:10)
--- NOTE | 2019-12-08 06:53 | NUR ---
MS RN NOTES PATIENT IN BED AND AWAKE. A/OX1. PT NOTED ON OXYGEN 3L/MIN VIA NASAL CANNULA TOLERATING WELL. NO SIGNS OF DISTRESS NOTED AT THIS TIME. NOTED WITH B/L SOFT RESTRAINS ON HANDS. PT NOTED WITH MATTHIAS MIDLINE INFUSING D5W @100CC/HR. COUGHLIN CATHETER IS PRESENT, DRAINING TO GRAVITY, URINE IS YELLOW. PT KEPT CLEAN, DRY, AND COMFORTABLE. PT TURNED Q2 HOURS THROUGHOUT SHIFT. SAFETY MEASURES IN PLACE WITH BED IN LOWEST LOCKED POSITION WITH SIDE RAILS UP X2. CALL LIGHT WITHIN REACH. WILL ENDORSE TO ONCOMING NURSE FOR CHERELLE.
[2019-12-08 07:27] LABS: BASOPHILS % (AUTO) 0.2 % (0.0-2.0); EOSINOPHILS % (AUTO) 7.3 % (0.0-6.0); HEMATOCRIT 22 % (39-51); HEMOGLOBIN 7.1 g/dL (13.5-17.5); LYMPHOCYTES # (AUTO) 0.8 /CMM (0.8-4.8); LYMPHOCYTES % (AUTO) 6.7 % (20.0-44.0); MEAN CORPUSCULAR HGB CONC 33 g/dl (31.0-36.0); MEAN CORPUSCULAR VOLUME 105 fL (80-96); MONOCYTES # (AUTO) 0.5 /CMM (0.1-1.30); MONOCYTES % (AUTO) 4.6 % (2.0-12.0); NEUTROPHILS # (AUTO) 9.6 /CMM (1.8-8.9); NEUTROPHILS % (AUTO) 81.2 % (43.0-81.0); PLATELET COUNT (AUTO) 160 /CMM (150-450); RED BLOOD CELL COUNT(AUTO) 2.05 MIL/uL (4.5-6.0); WHITE BLOOD COUNT (AUTO) 11.8 K/uL (4.3-11.0)
[2019-12-08] MEDS: LEVOTHYROXINE SODIUM 75 MCG TABLET PO SCH (07:30)
--- NOTE | 2019-12-08 07:34 | NUR ---
MS RN OPENING NOTES RECEIVED PATIENT IN BED RESTING COMFORTABLY IN MODERATE HIGH BACK REST. A/OX1. NOTED WITH OXYGEN 3L/MIN VIA NASAL CANNULA TOLERATING WELL. NO SIGNS OF DISTRESS NOTED AT THIS TIME. NOTED WITH B/L SOFT RESTRAINS ON HANDS. NOTED WITH MATTHIAS MIDLINE INFUSING D5W @100CC/HR. COUGHLIN CATHETER IS PRESENT, DRAINING TO GRAVITY, URINE IS YELLOW. DR. JACOBSON ON UNIT, SEEN AND EXAMINED THE PATIENT, GAVE ORDER FOR PATIENT TO BE ON NPO, AWAITING FOR GI EVALUATION. SAFETY MEASURES IN PLACE WITH BED IN LOWEST LOCKED POSITION WITH SIDE RAILS UP X2. CALL LIGHT WITHIN REACH. WILL CONTINUE TO MONITOR.
[2019-12-08 07:51] LABS: CALCIUM, SERUM 7.1 mg/dL (8.5-10.1); CARBON DIOXIDE 22 mmol/L (21-32); CHLORIDE 110 mmol/L (98-107); CREATININE 2.9 mg/dL (0.6-1.3); GLUCOSE 125 mg/dL (74-106); MAGNESIUM 2.2 mg/dL (1.8-2.4); PHOSPHORUS 2.4 mg/dL (2.5-4.9); POTASSIUM 3.3 mmol/L (3.5-5.1); SODIUM SERUM 143 mmol/L (136-145); UREA NITROGEN, BLOOD 45 mg/dL (7-18)
[2019-12-08 08:00] VITALS: BP 117/73
[2019-12-08] MEDS: CYANOCOBALAMIN 500 MCG TABLET PO SCH ×2 (08:24→16:58)
[2019-12-08] MEDS: ASCORBIC ACID 500 MG TABLET PO SCH (08:24)
[2019-12-08] MEDS: PROSOURCE / PROSTAT (PYXIS) 30 ML UDC PO SCH (08:24)
[2019-12-08] MEDS: MAGNESIUM HYDROXIDE 30 ML UDC PO SCH (08:24)
[2019-12-08] MEDS: DORZOLAMIDE OPTH 2% 10 ML BOTTLE EACHEYE SCH ×2 (08:36→16:20)
[2019-12-08] MEDS: TIMOLOL 0.5% SOLN OPHTH 5 ML BOTTLE EACHEYE SCH ×2 (08:37→16:20)
[2019-12-08 08:48] LABS: ALBUMIN 1.9 g/dL (3.4-5.0); BILIRUBIN,DIRECT 3.2 mg/dL (0.0-0.2); BILIRUBIN,TOTAL 3.9 mg/dL (0.2-1.0); TOTAL PROTEIN, SERUM 6.4 g/dL (6.4-8.2)
[2019-12-08] MEDS: CEFTRIAXONE 1 G in IV D5W 50 ML IV SCH (14:05)
[2019-12-08] MEDS ORDERED: NEUTRA PHOS 1 POWD.PACKET GT ONE (15:30)
[2019-12-08 16:00] VITALS: BP 131/69
--- NOTE | 2019-12-08 18:35 | NUR ---
MS RN CLOSING NOTES PATIENT IN BED RESTING COMFORTABLY IN MODERATE HIGH BACK REST. A/OX1. NOTED WITH OXYGEN 3L/MIN VIA NASAL CANNULA TOLERATING WELL. NO SIGNS OF DISTRESS NOTED THROUGHOUT THE SHIFT. NOTED WITH B/L SOFT RESTRAINS ON HANDS. NOTED WITH MATTHIAS MIDLINE INFUSING D5W @100CC/HR. COUGHLIN CATHETER IS PRESENT, DRAINING TO GRAVITY, URINE IS YELLOW. SAFETY MEASURES IN PLACE WITH BED IN LOWEST LOCKED POSITION WITH SIDE RAILS UP X2. CALL LIGHT WITHIN REACH. WILL ENDORSE TO OCCUPATIONAL THERAPY CO DIRECTOR NURSE FOR CHERELLE.
--- NOTE | 2019-12-08 19:50 | NUR ---
MS STANLEY OPENING NOTES PATIENT RECEIVED SLEEPING IN BED COMFORTABLY; PATIENT ON 3L NC, TOLERATING WELL; BREATHING EVEN AND UNLABORED; NO S/S OF ACUTE RESPIRATORY DISTRESS NOTED; PATIENT A/O X1; BILATERAL SOFT WRIST RESTRAINTS IN PLACE; NO EVIDENCE OF SKIN BREAK DOWN AT WRISTS; L FA # 22 INTACT AND PATENT; FLUSHING WELL; NO S/S OF REDNESS OR INFILTRATION; BED LOCKED IN LOW POSITION; SAFETY PRECAUTIONS IN PLACE; UPPER SIDE RAILS X2; CALL LIGHT WITHIN REACH; WILL CONTINUE TO MONITOR Addendum: 12/08/19 at 2051 by JIE MARTÍNEZ RN CED HANDLEY INTACT; FLOWING YELLOW URINE.
[2019-12-08 20:00] VITALS: BP 117/74
[2019-12-08] MEDS: MIRTAZAPINE 15 MG TABLET PO SCH (21:58)
[2019-12-08] MEDS: SENNOSIDES 8.6 MG TABLET PO SCH (21:58)
--- NOTE | 2019-12-08 21:59 | NUR ---
MS RN NOTES MEDICATIONS NON-ADMINISTERED; PER DR. JACOBSON, PATIENT IS TO BE NPO; AWAITING GI CONSULT; WILL CONTINUE TO MONITOR.
[2019-12-09 06:37] LABS: BASOPHILS % (AUTO) 0.2 % (0.0-2.0); EOSINOPHILS % (AUTO) 7.6 % (0.0-6.0); HEMATOCRIT 24 % (39-51); HEMOGLOBIN 7.8 g/dL (13.5-17.5); LYMPHOCYTES # (AUTO) 1.3 /CMM (0.8-4.8); MEAN CORPUSCULAR HGB CONC 33 g/dl (31.0-36.0); MEAN CORPUSCULAR VOLUME 105 fL (80-96); MONOCYTES # (AUTO) 0.7 /CMM (0.1-1.30); MONOCYTES % (AUTO) 6.3 % (2.0-12.0); NEUTROPHILS # (AUTO) 7.9 /CMM (1.8-8.9); NEUTROPHILS % (AUTO) 73.9 % (43.0-81.0); PLATELET COUNT (AUTO) 178 /CMM (150-450); RED BLOOD CELL COUNT(AUTO) 2.24 MIL/uL (4.5-6.0); WHITE BLOOD COUNT (AUTO) 10.7 K/uL (4.3-11.0)
[2019-12-09 06:39] LABS: CALCIUM, SERUM 7.4 mg/dL (8.5-10.1); CARBON DIOXIDE 22 mmol/L (21-32); CHLORIDE 107 mmol/L (98-107); CREATININE 2.7 mg/dL (0.6-1.3); GLUCOSE 112 mg/dL (74-106); MAGNESIUM 2.2 mg/dL (1.8-2.4); PHOSPHORUS 2.4 mg/dL (2.5-4.9); POTASSIUM 3.2 mmol/L (3.5-5.1); SODIUM SERUM 141 mmol/L (136-145); UREA NITROGEN, BLOOD 36 mg/dL (7-18)
--- NOTE | 2019-12-09 06:52 | NUR ---
MS RN CLOSING NOTES PATIENT RESTING IN BED COMFORTABLY; PATIENT ON 3L NC, TOLERATING WELL; NO S/S OF ACUTE RESPIRATORY DISTRESS NOTED; BREATHING EVEN AND UNLABORED; BILATERAL SOFT WRIST RESTRAINTS IN PLACE; NO EVIDENCE OF SKIN BREAK DOWN UNDER WRISTS; L FA # 22 SL AND MATTHIAS MIDLINE RUNNING D5W @ 100ML/HR; PATIENT NPO STATUS MAINTAINED; COUGHLIN CATH INTACT; FLOWING YELLOW URINE; 900 CC DRAINED. SAFETY PRECAUTIONS IN PLACE; BED LOCKED IN LOW POSITION; SIDE RAILS X2; CALL LIGHT WITHIN REACH; WILL ENDORSE CHERELLE TO ONCOMING SHIFT.
[2019-12-09 07:04] LABS: ALBUMIN 1.9 g/dL (3.4-5.0); BILIRUBIN,DIRECT 2.3 mg/dL (0.0-0.2); BILIRUBIN,TOTAL 3.2 mg/dL (0.2-1.0); TOTAL PROTEIN, SERUM 6.9 g/dL (6.4-8.2)
[2019-12-09] MEDS: LEVOTHYROXINE SODIUM 75 MCG TABLET PO SCH (07:30)
--- NOTE | 2019-12-09 07:30 | NUR ---
MS/RN Opening Note Patient received awake and alert, able to responds all stimuli. Pt does no appears pain or any discomfort, respiratory even and unlabored in room air. Skin is warm to touch, intact IV site. Pt NPO status. Kept lower position of bed with elevated HOB, side rail up x 3. Call light within reach, will continue to monitor.
[2019-12-09 08:00] VITALS: BP 117/67
[2019-12-09] MEDS: MAGNESIUM HYDROXIDE 30 ML UDC PO SCH (09:00)
[2019-12-09] MEDS: ASCORBIC ACID 500 MG TABLET PO SCH (09:00)
[2019-12-09] MEDS: PROSOURCE / PROSTAT (PYXIS) 30 ML UDC PO SCH (09:00)
[2019-12-09] MEDS: CYANOCOBALAMIN 500 MCG TABLET PO SCH ×2 (09:00→17:00)
[2019-12-09] MEDS: TIMOLOL 0.5% SOLN OPHTH 5 ML BOTTLE EACHEYE SCH ×2 (09:19→17:11)
[2019-12-09] MEDS: DORZOLAMIDE OPTH 2% 10 ML BOTTLE EACHEYE SCH ×2 (09:19→17:11)
[2019-12-09] MEDS: IV D5W 1,000 ML IV PRN (09:21)
--- NOTE | 2019-12-09 11:30 | NUR ---
Pt has been NPO since yesterday morning, Dr. Pike stated "GI knows about pt, should be on schedule for PEG". Will continue to monitor.
[2019-12-09] MEDS: CEFTRIAXONE 1 G in IV D5W 50 ML IV SCH (14:30)
[2019-12-09 16:00] VITALS: BP 106/81
--- NOTE | 2019-12-09 18:45 | NUR ---
MS/RN Closing NOTe Patient stay on bed comfortably, no s/s adverse reaction observed from ATB, skin is warm to touch, clean/dry, changed dressing on sacral and mid back. Respiration even and unlabored. Keep lower position of bed with elevated HOB. Call light within reach, will endorse rn shift mgr.
--- NOTE | 2019-12-09 19:39 | NUR ---
MS RN OPENING NOTES PATIENT RESTING IN BED COMFORTABLY; PATIENT ON 3L NC; TOLERATING WELL; BREATHING EVEN AND UNLABORED; NO S/S OF ACUTE RESPIRATORY DISTRESS NOTED; PATIENT A/O X1-2; BILATERAL SOFT WRIST RESTRAINTS IN PLACE; NO EVIDENCE OF SKIN BREAKDOWN AT WRISTS; L FA #22 SL INTACT AND PATENT; FLUSHING WELL; MATTHIAS MIDLINE RUNNING D5W @100ML/HR; NPO STATUS MAINTAINED; AWARE; SAFETY PRECAUTIONS IN PLACE; BED LOCKED IN LOW POSITION; BILATERAL SIDE RAILS X2; CALL LIGHT WITHIN REACH; WILL CONTINUE TO MONITOR Addendum: 12/09/19 at 2052 by JIE MARTÍNEZ RN CED HANDLEY INTACT; FLOWING YELLOW URINE;
[2019-12-09 20:00] VITALS: BP 97/72
[2019-12-09] MEDS: MIRTAZAPINE 15 MG TABLET PO SCH (21:27)
[2019-12-09] MEDS: SENNOSIDES 8.6 MG TABLET PO SCH (21:27)
[2019-12-10] VITALS (8 sets, daily range): BP systolic 96–124; BP diastolic 52–85
[2019-12-10] MEDS: IV D5W 1,000 ML IV PRN (01:13)
--- NOTE | 2019-12-10 06:41 | NUR ---
MS RN CLOSING NOTES PATIENT RESTING IN BED COMFORTABLY; A/OX1-2; PATIENT ON 3L NC; TOLERATING WELL, NO S/S OF ACUTE RESPIRATORY DISTRESS NOTED; BILATERAL SOFT WRIST RESTRAINTS IN PLACE; NO EVIDENCE OF SKIN BREAKDOWN AT WRISTS; L FA # 22 SL; MATTHIAS MIDLINE RUNNING D5W @ 100ML/HR; IV SITES INTACT AND PATENT; NO S/S OF REDNESS OR INFILTRATION NOTED; COUGHLIN CATH INTACT; FLOWING YELLOW URINE; ALL NEEDS ATTENDED TO; SAFETY PRECAUTIONS IN PLACE; BED LOCKED IN LOW POSITION; BILATERAL SIDE RAILS X2; CALL LIGHT WITHIN REACH; WILL ENDORSE CONTINUITY OF CARE TO ONCOMING SHIFT
--- NOTE | 2019-12-10 07:46 | NUR ---
MS/RN OPENING NOTES RECEIVED PATIENT RESTING IN BED COMFORTABLY; A/OX1-2; PATIENT ON 3L NC; TOLERATING WELL, NO S/S OF ACUTE RESPIRATORY DISTRESS NOTED; BILATERAL SOFT WRIST RESTRAINTS IN PLACE; NO EVIDENCE OF SKIN BREAKDOWN AT WRISTS; L FA # 22 SL; MATTHIAS MIDLINE RUNNING D5W @ 100ML/HR; IV SITES INTACT AND PATENT; NO S/S OF REDNESS OR INFILTRATION NOTED; COUGHLIN CATH INTACT; FLOWING YELLOW URINE; BED LOCKED IN LOW POSITION AND LOCKED; BILATERAL SIDE RAILS X2; CALL LIGHT WITHIN REACH; WILL CONTINUE TO MONITOR.
[2019-12-10] MEDS: LEVOTHYROXINE SODIUM 75 MCG TABLET PO SCH (08:41)
[2019-12-10] MEDS: CYANOCOBALAMIN 500 MCG TABLET PO SCH ×2 (08:41→16:03)
[2019-12-10] MEDS: MAGNESIUM HYDROXIDE 30 ML UDC PO SCH (08:41)
[2019-12-10] MEDS: ASCORBIC ACID 500 MG TABLET PO SCH (08:41)
[2019-12-10 08:57] LABS: BASOPHILS % (AUTO) 0.5 % (0.0-2.0); EOSINOPHILS % (AUTO) 7.1 % (0.0-6.0); HEMATOCRIT 22 % (39-51); HEMOGLOBIN 7.5 g/dL (13.5-17.5); LYMPHOCYTES # (AUTO) 1.5 /CMM (0.8-4.8); MEAN CORPUSCULAR HGB CONC 34 g/dl (31.0-36.0); MEAN CORPUSCULAR VOLUME 104 fL (80-96); MONOCYTES # (AUTO) 0.7 /CMM (0.1-1.30); NEUTROPHILS # (AUTO) 5.9 /CMM (1.8-8.9); NEUTROPHILS % (AUTO) 67.4 % (43.0-81.0); PLATELET COUNT (AUTO) 177 /CMM (150-450); RED BLOOD CELL COUNT(AUTO) 2.15 MIL/uL (4.5-6.0); WHITE BLOOD COUNT (AUTO) 8.7 K/uL (4.3-11.0)
[2019-12-10] MEDS: DORZOLAMIDE OPTH 2% 10 ML BOTTLE EACHEYE SCH ×2 (09:00→16:03)
[2019-12-10] MEDS: TIMOLOL 0.5% SOLN OPHTH 5 ML BOTTLE EACHEYE SCH ×2 (09:00→16:03)
[2019-12-10] MEDS: PROSOURCE / PROSTAT (PYXIS) 30 ML UDC PO SCH (09:00)
[2019-12-10 09:08] LABS: ALBUMIN 1.8 g/dL (3.4-5.0); BILIRUBIN,DIRECT 1.5 mg/dL (0.0-0.2); BILIRUBIN,TOTAL 2.4 mg/dL (0.2-1.0); TOTAL PROTEIN, SERUM 6.7 g/dL (6.4-8.2)
[2019-12-10 09:23] LABS: CALCIUM, SERUM 7.3 mg/dL (8.5-10.1); CARBON DIOXIDE 21 mmol/L (21-32); CHLORIDE 104 mmol/L (98-107); CREATININE 2.5 mg/dL (0.6-1.3); GLUCOSE 116 mg/dL (74-106); MAGNESIUM 2.2 mg/dL (1.8-2.4); PHOSPHORUS 2.5 mg/dL (2.5-4.9); POTASSIUM 2.9 mmol/L (3.5-5.1); SODIUM SERUM 137 mmol/L (136-145); UREA NITROGEN, BLOOD 29 mg/dL (7-18)
[2019-12-10] MEDS ORDERED: IV D5/0.45 NACL 1,000 ML IV PRN (11:26)
[2019-12-10] MEDS: CEFTRIAXONE 1 G in IV D5W 50 ML IV SCH (14:05)
[2019-12-10] MEDS: POTASSIUM CL. PREMIX PERIPHER. 50 ML IV SCH ×4 (15:41→22:41)
--- NOTE | 2019-12-10 19:30 | NUR ---
MSRN PATIENT FOR PEG PLACEMENT ANKITA. OR STAFF A T BEDSIDE.
--- NOTE | 2019-12-10 19:31 | NUR ---
MS/RN CLOSING NOTES PATIENT RESTING IN BED COMFORTABLY; A/OX1-2; PATIENT ON 3L NC; TOLERATING WELL, NO S/S OF ACUTE RESPIRATORY DISTRESS NOTED; BILATERAL SOFT WRIST RESTRAINTS IN PLACE; NO EVIDENCE OF SKIN BREAKDOWN AT WRISTS; L FA # 22 SL; MATTHIAS MIDLINE RU IV SITES INTACT AND PATENT; NO S/S OF REDNESS OR INFILTRATION NOTED; COUGHLIN CATH INTACT; FLOWING YELLOW URINE; BED LOCKED IN LOW POSITION AND LOCKED; BILATERAL SIDE RAILS X2; PATIENT WAS DIRECTOR OF PRODUCT MANAGEMENT BY OR NURSE FOR GT PLACEMENT AT 1915. WILL ENDORSED TO RAMP LEAD
--- NOTE | 2019-12-10 20:15 | NUR ---
MSRN BACK FROM OR, V/S MONITORED. STABLE. EASILY AROUSABLE. IVF RESUMED. KEPT PATIENT NPO. GT CLAMPED. WILL START GT FEEDING IN AM ORDERED.REPOSITIONED FOR COMFORT. BILATERAL SOFT WRIST RESTRAINTS TO PREVENT PATIENT FORM PULLING LINES AND GT.
[2019-12-10] MEDS: MIRTAZAPINE 15 MG TABLET PO SCH (21:26)
[2019-12-10] MEDS: SENNOSIDES 8.6 MG TABLET PO SCH (21:26)
--- NOTE | 2019-12-10 22:00 | NUR ---
MSRAlisa JORDANQ CHECKED V/S REMAINS STABLE. CLOSELY WATCHED.
--- NOTE | 2019-12-11 02:28 | NUR ---
MSRN AWAKE AT TIMES, FC TO GRAVITY GOOD OUTPUT. KEPT NPO. IVF CONTINUED
--- NOTE | 2019-12-11 06:35 | NUR ---
MSRN FULLY AWAKE. GT INTACT. BILATERAL SOFT WRIST RESTAINTS MAINTAINED FREQ CHECKED FOR CIRCULATION. REPOSTIONED. KEPT NPO
--- NOTE | 2019-12-11 07:35 | NUR ---
MS/RN NOTE THE PATIENT IS RECEIVED IN BED. ALERT AND ORIENTED X1. RECEIVING OXYGEN AT 2L/MIN VIA NASAL CANNULA AND DENIES SOB. RESPIRATION REGULAR AND UNLABORED. DENIES PAIN. THE PATIENT IN NO APPARENT DISTRESS. GT PRESENT WITH NO FEEDING CONNECTED. THE PATIENT IS NOTED WITH BILATERAL SOFT WRIST RESTRAINS. RADIAL PULSES PRESENT AND SKIN WITH NO BREAKDOWN. PATIENT NPO. COUGHLIN CATH PRESENT. BED LOW AND LOCKED. SIDE RAILS UP X3. CALL LIGHT WITHIN REACH. WILL CONTINUE TO MONITOR.
[2019-12-11 08:00] VITALS: BP 108/54
[2019-12-11 08:45] LABS: BASOPHILS % (AUTO) 0.5 % (0.0-2.0); HEMATOCRIT 23 % (39-51); HEMOGLOBIN 7.4 g/dL (13.5-17.5); LYMPHOCYTES # (AUTO) 1.4 /CMM (0.8-4.8); LYMPHOCYTES % (AUTO) 22.6 % (20.0-44.0); MEAN CORPUSCULAR HGB CONC 32 g/dl (31.0-36.0); MEAN CORPUSCULAR VOLUME 107 fL (80-96); MONOCYTES # (AUTO) 0.7 /CMM (0.1-1.30); MONOCYTES % (AUTO) 11.1 % (2.0-12.0); NEUTROPHILS # (AUTO) 3.6 /CMM (1.8-8.9); NEUTROPHILS % (AUTO) 58.8 % (43.0-81.0); PLATELET COUNT (AUTO) 171 /CMM (150-450); RED BLOOD CELL COUNT(AUTO) 2.15 MIL/uL (4.5-6.0); WHITE BLOOD COUNT (AUTO) 6.2 K/uL (4.3-11.0)
[2019-12-11 08:57] LABS: ALANINE AMINOTRANSFERASE 163 U/L (12-78); ALBUMIN 1.8 g/dL (3.4-5.0); ALKALINE PHOSPHATASE 523 U/L (46-116); ASPARTATE AMINOTRANSFERASE 119 U/L (15-37); BILIRUBIN,TOTAL 1.7 mg/dL (0.2-1.0); CALCIUM, SERUM 7.6 mg/dL (8.5-10.1); CARBON DIOXIDE 23 mmol/L (21-32); CHLORIDE 109 mmol/L (98-107); CREATININE 2.3 mg/dL (0.6-1.3); GLUCOSE 118 mg/dL (74-106); MAGNESIUM 2.1 mg/dL (1.8-2.4); PHOSPHORUS 2.5 mg/dL (2.5-4.9); POTASSIUM 3.3 mmol/L (3.5-5.1); SODIUM SERUM 140 mmol/L (136-145); TOTAL PROTEIN, SERUM 6.6 g/dL (6.4-8.2); UREA NITROGEN, BLOOD 24 mg/dL (7-18)
[2019-12-11] MEDS: MAGNESIUM HYDROXIDE 30 ML UDC PO SCH (10:43)
[2019-12-11] MEDS: CYANOCOBALAMIN 500 MCG TABLET PO SCH ×2 (10:43→18:20)
[2019-12-11] MEDS: ASCORBIC ACID 500 MG TABLET PO SCH (10:43)
[2019-12-11] MEDS: LEVOTHYROXINE SODIUM 75 MCG TABLET PO SCH (10:44)
[2019-12-11] MEDS: DORZOLAMIDE OPTH 2% 10 ML BOTTLE EACHEYE SCH ×2 (10:44→18:21)
[2019-12-11] MEDS: TIMOLOL 0.5% SOLN OPHTH 5 ML BOTTLE EACHEYE SCH ×2 (10:44→18:21)
[2019-12-11] MEDS: PROSOURCE / PROSTAT (PYXIS) 30 ML UDC PO SCH (10:54)
--- NOTE | 2019-12-11 10:54 | NUR ---
MS/RN NOTE RECEIVED ORDER FROM HERNANDEZ SOLORIO 1.2 AT 20ML/HR ADVANCE TOLERATED TO 55ML/HR FOR 24 HR. NOTED AND CARRIED OUT. WILL START THE FEEDING SOON KITCHEN DELIVERS IT.
[2019-12-11] MEDS ORDERED: JEVITY 1.2 CAL 1,000 ML BOTTLE GT PRN ×2 (11:00→11:27)
[2019-12-11] MEDS ORDERED: POTASSIUM CL. PREMIX PERIPHER. 50 ML IV SCH (11:30)
--- NOTE | 2019-12-11 12:30 | NUR ---
MS/RN NOTE STARTED JEVITY 1.2 AT 20ML/HR. WILL MONITOR THE PATIENT.
--- NOTE | 2019-12-11 14:00 | NUR ---
MS/RN NOTE GT FEEDING RATE IS INCREASED FROM 20ML/HR TO 30 ML/HR DUE TO PATIENT TOLERATING FEEDING WELL AND NO RESIDUAL NOTED.
[2019-12-11] MEDS ORDERED: LACT-209 GT (14:46)
--- NOTE | 2019-12-11 15:00 | NUR ---
MS/RN NOTE GT FEEDING RATE INCREASED TO 40ML/HR. NO RESIDUAL NOTED. ABDOMEN SOFT AND NON-DISTENDED. ACTIVE BOWEL SOUNDS PRESENT IN ALL 4 QUADS. WILL CONTINUE TO MONITOR.
[2019-12-11] MEDS: CEFTRIAXONE 1 G in IV D5W 50 ML IV SCH (15:16)
[2019-12-11 16:00] VITALS: BP 132/73
--- NOTE | 2019-12-11 16:02 | NUR ---
MS/RN NOTE GT FEEDING RATE IS INCREASED TO 50ML/HR AND NO RESIDUAL NOTED AT THIS TIME. WILL CONTINUE TO MONITOR.
--- NOTE | 2019-12-11 16:40 | NUR ---
MS/RN NOTE GT FEEDING IS TOLERATING WELL. JEVITY 1.2 INFUSING AT 50 ML/HR AND NOTED 5 ML RESIDUAL. ABDOMEN SOFT AND NON-DISTENDED. ACTIVE BOWEL SOUNDS HEARD IN ALL FOUR QUADS. WILL CONTINUE TO MONITOR.
--- NOTE | 2019-12-11 18:23 | NUR ---
MS/RN NOTE THE PATIENT IS ALERT AND ORIENTED X1. IN ROOM AIR AND SATURATION IS AT 93%. DENIES SOB. RESPIRATION REGULAR AND UNLABORED. DENIES PAIN. GT FEEDING JEVITY 1.2 INFUSING AT 55ML/HR AND NOTED 5 ML RESIDUAL. ABDOMEN SOFT AND NON-DISTENDED. COUGHLIN CATH PRESENT AND DRAINING CLEAR, YELLOW COLOR URINE. NO BLADDER DISTENSION NOTED. MATTHIAS IV PATENT AND SALINE LOCKED. BILATERAL SOFT WRIST RESTRAINS ON PER ORDER WITH NO SKIN BREAKDOWN NOTED AND NO S/S POOR CIRCULATION NOTED. BED LOW AND LOCKED. SIDE RAILS UP X3. CALL LIGHT WITHIN REACH. WILL ENDORSE TO DIESEL [employer]INE[employer].
== END 2019-12-11 19:00 | DRG 682 ==
LOC: ER 14:03 → MEDSG2 15:14 → EDSEX 15:14 → MED 12-03 11:24
PROVIDERS: ADMIT Internal Medicine; ATTEND Nurse Practitioner Acute Care
PROC: 05H533Z Insertion of Infusion Device into Right Subclavian Vein, Percutaneous Approach (ICD-10-PCS; 2019-12-07)
PROC: 0DH63UZ Insertion of Feeding Device into Stomach, Percutaneous Approach (ICD-10-PCS; principal; 2019-12-10)
PROC: 0DJ08ZZ Inspection of Upper Intestinal Tract, Via Natural or Artificial Opening Endoscopic (ICD-10-PCS; 2019-12-10)
DX: N17.0 Acute kidney failure with tubular necrosis (principal); I21.A1 Myocardial infarction type 2; G93.41 Metabolic encephalopathy; E43 Unspecified severe protein-calorie malnutrition; E87.0 Hyperosmolality and hypernatremia; Z68.1 Body mass index [BMI] 19.9 or less, adult; E86.1 Hypovolemia; E87.5 Hyperkalemia; E03.9 Hypothyroidism, unspecified; Z66 Do not resuscitate; E87.6 Hypokalemia; F03.90 Unspecified dementia, unspecified severity, without behavioral disturbance, psychotic disturbance, mood disturbance, and anxiety; I12.9 Hypertensive chronic kidney disease with stage 1 through stage 4 chronic kidney disease, or unspecified chronic kidney disease; I25.10 Atherosclerotic heart disease of native coronary artery without angina pectoris; I48.0 Paroxysmal atrial fibrillation; R13.10 Dysphagia, unspecified; N18.4 Chronic kidney disease, stage 4 (severe); H40.9 Unspecified glaucoma; R62.7 Adult failure to thrive; L90.5 Scar conditions and fibrosis of skin; E88.09 Other disorders of plasma-protein metabolism, not elsewhere classified; K29.70 Gastritis, unspecified, without bleeding; Z79.01 Long term (current) use of anticoagulants; E86.0 Dehydration
CPT/HCPCS: 36410; 36415; 43246; 71045-TC; 76700-TC; 76770-TC; 80048-TC; 80053-TC; 80076-TC; 81000-TC; 82550-TC; 82570-TC; 82962-TC; 83735-TC; 83970; 84100-TC; 84155; 84155-TC; 84165; 84300-TC; 84484-TC; 85025-TC; 85610-TC; 85730-TC; 87081-TC; 87086-TC; 87186-TC; 97110-TC; 97116-TC; 97530-TC; G0378; J0690; J0696; J1815; J2704; J3480; J3490; J7040; J7060; J7070

== ENCOUNTER 2019-12-19 13:59 | Inpatient (IN) | payer MEDICARE, OTHER ==
[~2019-12-19] VITALS: Ht 180.3 cm; Wt 68.9 kg
[~2019-12-19 13:59] MED LIST: ACET-868 PO; AMIN887L GT; APIX5TAB GT; ASCO500T9 GT; ATOR80TA GT; BISA10SU61 RC; CRAN3875 GT; CRAN425C6 PO; CYAN-51 GT; DORZ10DR13 EACHEYE; LACT-209 GT; LEVO25TA7 GT; LISI-605 GT; MAGN400O6 GT; METO-357 PO; MIRT15TA GT; NUTR1PAC14 GT; POLY17PO4 GT; SENN-18 GT; TYL2T GT
[2019-12-19] MEDS ORDERED: ACET-2605 GT (14:20)
[2019-12-19] MEDS ORDERED: MULT-447 GT (14:20)
[2019-12-19] MEDS ORDERED: METO25TA6 GT (14:20)
[2019-12-19] MEDS ORDERED: DOCU50LI GT (14:20)
[2019-12-19] MEDS ORDERED: NA P133E RC (14:20)
[2019-12-19 14:42] LABS: BASOPHILS # (AUTO) 0.2 /CMM (0.0-0.2); BASOPHILS % (AUTO) 1.3 % (0.0-2.0); EOSINOPHILS % (AUTO) 5.4 % (0.0-6.0); LYMPHOCYTES # (AUTO) 3.9 /CMM (0.8-4.8); LYMPHOCYTES % (AUTO) 24.8 % (20.0-44.0); MEAN CORPUSCULAR HGB CONC 32 g/dl (31.0-36.0); MEAN CORPUSCULAR VOLUME 110 fL (80-96); MONOCYTES % (AUTO) 6.6 % (2.0-12.0); NEUTROPHILS # (AUTO) 9.7 /CMM (1.8-8.9); NEUTROPHILS % (AUTO) 61.9 % (43.0-81.0); PLATELET COUNT (AUTO) 305 /CMM (150-450); WHITE BLOOD COUNT (AUTO) 15.7 K/uL (4.3-11.0)
[2019-12-19 14:43] LABS: RED BLOOD CELL COUNT(AUTO) 1.58 MIL/uL (4.5-6.0)
[2019-12-19 14:44] LABS: HEMATOCRIT 17 % (39-51); HEMOGLOBIN 5.5 g/dL (13.5-17.5)
[2019-12-19 14:50] LABS: CALCIUM, SERUM 8.5 mg/dL (8.5-10.1); CARBON DIOXIDE 31 mmol/L (21-32); CHLORIDE 115 mmol/L (98-107); CREATININE 1.7 mg/dL (0.6-1.3); GLUCOSE 122 mg/dL (74-106); POTASSIUM 4.2 mmol/L (3.5-5.1); SODIUM SERUM 153 mmol/L (136-145); UREA NITROGEN, BLOOD 57 mg/dL (7-18)
[2019-12-19 14:50] LABS: APPEARANCE,URINE Clear (CLEAR); BILIRUBIN,URINE Negative (NEGATIVE); BLOOD, URINE Trace-intact Ery/uL (NEGATIVE); COLOR,URINE Yellow (YELLOW); KETONES,URINE Negative (NEGATIVE); LEUKOCYTE ESTERASE ,URINE Moderate (NEGATIVE); NITRITE, URINE Negative (NEGATIVE); PH,URINE 8.5 (5.0-8.0); PROTEIN,URINE 100 mg/dl (NEGATIVE); UGLUCOSE Negative (NEGATIVE)
[2019-12-19 14:52] LABS: BACTERIA,URINE Few /HPF (None Seen); SQUAMOUS EPITHELIAL CELL,UR None Seen /HPF (None Seen)
[2019-12-19] MEDS ORDERED: IV NS 0.9% 1,000 ML BAG IV ONE (15:00)
[2019-12-19 15:02] LABS: ALBUMIN 2.1 g/dL (3.4-5.0); BILIRUBIN,TOTAL 1.5 mg/dL (0.2-1.0); TOTAL PROTEIN, SERUM 8.2 g/dL (6.4-8.2)
[2019-12-19 15:39] LABS: IRON, SERUM 61 ug/dl (50-175); TOTAL IRON BINDING CAPACITY 205 ug/dl (250-450)
[2019-12-19 16:27] LABS: EOSINOPHILS % (MANUAL) 5 % (0-4); LYMPHOCYTES % (MANUAL) 21 % (16-48); MONOCYTES % (MANUAL) 6 % (0-11.0); NEUTROPHILS % (MANUAL) 68 (42-76)
[2019-12-19] MEDS ORDERED: ACETAMINOPHEN 650 MG/SUPP.RECT RC ONE (17:44)
[2019-12-19] MEDS ORDERED: ACETAMINOPHEN 650 MG/SUPP.RECT RC PRN (18:00)
[2019-12-19] MEDS ORDERED: ONDANSETRON HCL/PF 4 MG/2 ML VIAL IVP PRN (18:30)
[2019-12-19] MEDS ORDERED: Z GUARD REMEDY 2 OZ OINT TP PRN (18:30)
[2019-12-19] MEDS ORDERED: IV D5/ 0.9% NACL 1,000 ML IV PRN (18:30)
[2019-12-19 20:00] VITALS: BP 161/80
[2019-12-19] MEDS: PANTOPRAZOLE 40 MG VIAL IV SCH (20:42)
[2019-12-19 22:17] VITALS: BP 108/64
[2019-12-19 22:37] VITALS: BP 103/67
[2019-12-19 22:50] VITALS: BP 108/58
[2019-12-19 23:06] VITALS: BP 106/68
[2019-12-19 23:30] VITALS: BP 106/66
[2019-12-20] VITALS (23 sets, daily range): BP systolic 98–163; BP diastolic 44–90
[2019-12-20 03:23] LABS: OCCULT BLOOD STOOL NEGATIVE (NEGATIVE)
[2019-12-20 07:19] LABS: BASOPHILS # (AUTO) 0.1 /CMM (0.0-0.2); BASOPHILS % (AUTO) 1.1 % (0.0-2.0); EOSINOPHILS % (AUTO) 3.9 % (0.0-6.0); LYMPHOCYTES # (AUTO) 3.3 /CMM (0.8-4.8); LYMPHOCYTES % (AUTO) 25.2 % (20.0-44.0); MEAN CORPUSCULAR HGB CONC 31 g/dl (31.0-36.0); MEAN CORPUSCULAR VOLUME 111 fL (80-96); MONOCYTES # (AUTO) 0.8 /CMM (0.1-1.30); MONOCYTES % (AUTO) 6.3 % (2.0-12.0); NEUTROPHILS # (AUTO) 8.4 /CMM (1.8-8.9); NEUTROPHILS % (AUTO) 63.5 % (43.0-81.0); PLATELET COUNT (AUTO) 282 /CMM (150-450); WHITE BLOOD COUNT (AUTO) 13.3 K/uL (4.3-11.0)
[2019-12-20 07:22] LABS: RED BLOOD CELL COUNT(AUTO) 1.34 MIL/uL (4.5-6.0)
[2019-12-20 07:25] LABS: HEMATOCRIT 15 % (39-51); HEMOGLOBIN 4.6 g/dL (13.5-17.5)
[2019-12-20] MEDS: LEVOTHYROXINE SODIUM 25 MCG TABLET GT SCH (07:30)
[2019-12-20 08:14] LABS: CHOLESTEROL 91 mg/dL (<200); HDL CHOLESTEROL 22 mg/dL (40-60); LDL 54 mg/dL (0-99); THYROID STIMULATING HORMONE 5.091 uIU/mL (0.358-3.74); TRIGLYCERIDES 136 mg/dL (30-150)
[2019-12-20 08:21] LABS: CALCIUM, SERUM 8.7 mg/dL (8.5-10.1); CARBON DIOXIDE 25 mmol/L (21-32); CHLORIDE 116 mmol/L (98-107); CREATININE 1.8 mg/dL (0.6-1.3); GLUCOSE 105 mg/dL (74-106); MAGNESIUM 2.3 mg/dL (1.8-2.4); PHOSPHORUS 3.9 mg/dL (2.5-4.9); POTASSIUM 4.1 mmol/L (3.5-5.1); SODIUM SERUM 152 mmol/L (136-145); UREA NITROGEN, BLOOD 53 mg/dL (7-18)
[2019-12-20 08:58] LABS: EOSINOPHILS % (MANUAL) 3 % (0-4); LYMPHOCYTES % (MANUAL) 22 % (16-48); MONOCYTES % (MANUAL) 6 % (0-11.0); NEUTROPHILS % (MANUAL) 69 (42-76)
[2019-12-20] MEDS ORDERED: TIMOLOL MAL/DORZOLAM HCL OPHTH 10 ML BOTTLE EACHEYE SCH (09:00)
[2019-12-20] MEDS ORDERED: HYDROGEL DRESSING 90 GM TUBE TP PRN (10:00)
[2019-12-20] MEDS: DORZOLAMIDE OPTH 2% 10 ML BOTTLE EACHEYE SCH ×2 (10:31→17:17)
[2019-12-20] MEDS: TIMOLOL 0.5% SOLN OPHTH 5 ML BOTTLE EACHEYE SCH ×2 (10:31→17:16)
[2019-12-20] MEDS: PANTOPRAZOLE 40 MG VIAL IV SCH ×2 (10:32→21:03)
[2019-12-20 11:23] LABS: HEMOGLOBIN 5.2 g/dL (13.5-17.5)
[2019-12-20] MEDS: HYDROGEL DRESSING 90 GM TUBE TP SCH (18:16)
[2019-12-21] VITALS (14 sets, daily range): BP systolic 102–149; BP diastolic 50–99
[2019-12-21] MEDS: LEVOTHYROXINE SODIUM 25 MCG TABLET GT SCH (07:30)
[2019-12-21 07:35] LABS: BASOPHILS # (AUTO) 0.1 /CMM (0.0-0.2); BASOPHILS % (AUTO) 0.9 % (0.0-2.0); EOSINOPHILS % (AUTO) 3.7 % (0.0-6.0); HEMATOCRIT 21 % (39-51); LYMPHOCYTES # (AUTO) 2.7 /CMM (0.8-4.8); MEAN CORPUSCULAR HGB CONC 33 g/dl (31.0-36.0); MEAN CORPUSCULAR VOLUME 99 fL (80-96); MONOCYTES # (AUTO) 0.6 /CMM (0.1-1.30); MONOCYTES % (AUTO) 6.2 % (2.0-12.0); NEUTROPHILS # (AUTO) 6.4 /CMM (1.8-8.9); NEUTROPHILS % (AUTO) 63.2 % (43.0-81.0); PLATELET COUNT (AUTO) 243 /CMM (150-450); WHITE BLOOD COUNT (AUTO) 10.2 K/uL (4.3-11.0)
[2019-12-21 07:40] LABS: HEMOGLOBIN 6.8 g/dL (13.5-17.5)
[2019-12-21 07:43] LABS: CALCIUM, SERUM 8.2 mg/dL (8.5-10.1); CARBON DIOXIDE 27 mmol/L (21-32); CHLORIDE 119 mmol/L (98-107); CREATININE 1.7 mg/dL (0.6-1.3); GLUCOSE 113 mg/dL (74-106); MAGNESIUM 2.2 mg/dL (1.8-2.4); PHOSPHORUS 3.8 mg/dL (2.5-4.9); SODIUM SERUM 154 mmol/L (136-145); UREA NITROGEN, BLOOD 45 mg/dL (7-18)
[2019-12-21] MEDS: PANTOPRAZOLE 40 MG VIAL IV SCH ×2 (08:36→21:00)
[2019-12-21] MEDS: DORZOLAMIDE OPTH 2% 10 ML BOTTLE EACHEYE SCH ×2 (08:38→17:25)
[2019-12-21] MEDS: HYDROGEL DRESSING 90 GM TUBE TP SCH (08:38)
[2019-12-21] MEDS: TIMOLOL 0.5% SOLN OPHTH 5 ML BOTTLE EACHEYE SCH ×2 (08:38→17:25)
[2019-12-21 08:43] LABS: EOSINOPHILS % (MANUAL) 1 % (0-4); LYMPHOCYTES % (MANUAL) 23 % (16-48); MONOCYTES % (MANUAL) 10 % (0-11.0); NEUTROPHILS % (MANUAL) 66 (42-76)
[2019-12-21] MEDS: IV D5W 1,000 ML IV SCH ×2 (11:09→21:23)
[2019-12-22] MEDS: IV D5W 1,000 ML IV SCH ×2 (06:00→18:02)
[2019-12-22] MEDS: LEVOTHYROXINE SODIUM 25 MCG TABLET GT SCH (07:30)
[2019-12-22 08:00] VITALS: BP 112/85
[2019-12-22] MEDS: PANTOPRAZOLE 40 MG VIAL IV SCH (08:25)
[2019-12-22 08:27] LABS: BASOPHILS # (AUTO) 0.1 /CMM (0.0-0.2); BASOPHILS % (AUTO) 0.8 % (0.0-2.0); EOSINOPHILS % (AUTO) 5.9 % (0.0-6.0); HEMATOCRIT 24 % (39-51); HEMOGLOBIN 7.9 g/dL (13.5-17.5); LYMPHOCYTES % (AUTO) 25.6 % (20.0-44.0); MEAN CORPUSCULAR HGB CONC 33 g/dl (31.0-36.0); MEAN CORPUSCULAR VOLUME 98 fL (80-96); MONOCYTES # (AUTO) 0.4 /CMM (0.1-1.30); MONOCYTES % (AUTO) 5.1 % (2.0-12.0); NEUTROPHILS # (AUTO) 4.8 /CMM (1.8-8.9); NEUTROPHILS % (AUTO) 62.6 % (43.0-81.0); PLATELET COUNT (AUTO) 210 /CMM (150-450); RED BLOOD CELL COUNT(AUTO) 2.44 MIL/uL (4.5-6.0); WHITE BLOOD COUNT (AUTO) 7.6 K/uL (4.3-11.0)
[2019-12-22] MEDS: DORZOLAMIDE OPTH 2% 10 ML BOTTLE EACHEYE SCH ×2 (08:27→18:01)
[2019-12-22] MEDS: TIMOLOL 0.5% SOLN OPHTH 5 ML BOTTLE EACHEYE SCH ×2 (08:27→18:01)
[2019-12-22] MEDS: HYDROGEL DRESSING 90 GM TUBE TP SCH (09:00)
[2019-12-22 09:54] LABS: CARBON DIOXIDE 29 mmol/L (21-32); CHLORIDE 118 mmol/L (98-107); CREATININE 1.6 mg/dL (0.6-1.3); GLUCOSE 132 mg/dL (74-106); MAGNESIUM 2.2 mg/dL (1.8-2.4); PHOSPHORUS 3.5 mg/dL (2.5-4.9); POTASSIUM 4.1 mmol/L (3.5-5.1); SODIUM SERUM 153 mmol/L (136-145); UREA NITROGEN, BLOOD 39 mg/dL (7-18)
[2019-12-22 10:53] VITALS: BP 121/72
[2019-12-22] MEDS ORDERED: JEVITY 1.2 CAL 1,000 ML BOTTLE GT PRN (12:00)
[2019-12-22 16:00] VITALS: BP 119/74
== END 2019-12-22 20:00 | DRG 811 ==
LOC: ER 14:04 → MED 16:50 → TELE 18:55 → MED 12-20 08:23 → TELE 12-20 20:24 → MED 12-21 07:56
PROC: 30233N1 Transfusion of Nonautologous Red Blood Cells into Peripheral Vein, Percutaneous Approach (ICD-10-PCS; principal; 2019-12-19)
PROC: 0DB68ZX Excision of Stomach, Via Natural or Artificial Opening Endoscopic, Diagnostic (ICD-10-PCS; 2019-12-22)
DX: D50.9 Iron deficiency anemia, unspecified (principal); L89.153 Pressure ulcer of sacral region, stage 3; E87.0 Hyperosmolality and hypernatremia; G93.40 Encephalopathy, unspecified; D68.9 Coagulation defect, unspecified; N39.0 Urinary tract infection, site not specified; I10 Essential (primary) hypertension; E03.9 Hypothyroidism, unspecified; F03.90 Unspecified dementia, unspecified severity, without behavioral disturbance, psychotic disturbance, mood disturbance, and anxiety; H40.9 Unspecified glaucoma; I25.10 Atherosclerotic heart disease of native coronary artery without angina pectoris; Z86.73 Personal history of transient ischemic attack (TIA), and cerebral infarction without residual deficits; D75.89 Other specified diseases of blood and blood-forming organs; M48.00 Spinal stenosis, site unspecified; D72.829 Elevated white blood cell count, unspecified; K56.41 Fecal impaction; K29.70 Gastritis, unspecified, without bleeding; E78.5 Hyperlipidemia, unspecified; I48.91 Unspecified atrial fibrillation; Z79.01 Long term (current) use of anticoagulants; Z93.1 Gastrostomy status; N18.3 Chronic kidney disease, stage 3 (moderate); I13.10 Hypertensive heart and chronic kidney disease without heart failure, with stage 1 through stage 4 chronic kidney disease, or unspecified chronic kidney disease
CPT/HCPCS: 36415; 71045-TC; 80048-TC; 80061-TC; 80076-TC; 81000-TC; 82272-TC; 82962-TC; 83540-TC; 83690-TC; 83735-TC; 84100-TC; 84443-TC; 85025-TC; 85027-TC; 85730-TC; 86850-TC; 86921-TC; 87081-TC; 87086-TC; 88305-TC; 88313-TC; 88342; A6248; C9113; G0378; J3490; J7030; J7040; J7042; J7050; J7060; J7070; P9016-BL